=== PATIENT | male | born 1990 | race African-American/Black ===

== ENCOUNTER 2020-01-09 12:35 | Emergency (ER) | payer SELFPAY ==
[2020-01-09] MEDS ORDERED: TETRACAINE HCL 0.5% OPH SOLN 4 ML OS ONE ×2 (12:44→15:00)
--- NOTE | 2020-01-09 12:45 | ER Document Report ---
ED Medical Screen (RME) - General Chief Complaint: Eye Pain Stated Complaint: EYE ISSUES Time Seen by Provider: 01/09/20 12:42 Primary Care Provider: ZAKIYA SALAS [Primary Care Provider] - Follow up as needed - [facility] Notes: 01/09/20 12:44 Patient is a 29-year-old male who presents complaining of left eye pain that began this morning when he was smoking a cigarette. Patient states that the wind blew an action to his eye. Patient states that he has felt burning and irritation since then. He does not wear contact lenses. He did use the eye wash station at his work and has been rubbing at his eye. No other recent illness or fever. I have treated and performed a rapid initial assessment of this patient. A comprehensive ED assessment and evaluation of the patient, analysis of test results and completion of medical decision making process will be conducted by additional ED providers. PHYSICAL EXAMINATION: GENERAL: Well-appearing, well-nourished and in no acute distress. A&Ox4. Answers questions appropriately. Left eye: There is injection noted and a haziness noted to the cornea on basic evaluation in triage. - Related Data Allergies/Adverse Reactions: peanut Allergy (Verified 01/09/20 12:38) Past Medical History - Social History Frequency of alcohol use: None Drug Abuse: None Physical Exam - Vital signs Vitals: Temp Pulse Resp BP Pulse Ox 98.1 F 85 16 128/71 H 97 01/09/20 12:38 01/09/20 12:38 01/09/20 12:38 01/09/20 12:38 01/09/20 12:38 Course - Vital Signs Vital signs: Temp Pulse Resp BP Pulse Ox 98.1 F 85 16 128/71 H 97 01/09/20 12:38 01/09/20 12:38 01/09/20 12:38 01/09/20 12:38 01/09/20 12:38 Doctor's Discharge - Discharge Referrals: ZAKIYA SALAS [Primary Care Provider] - Follow up as needed
[2020-01-09] MEDS ORDERED: DIPH/PERTUSS(ACELL)/TETANUS VAC/PF 0.5 ML SYR (>=10YO) IM ONE (16:49)
--- NOTE | 2020-01-09 16:54 | ER Document Report ---
ED General - General Chief Complaint: Eye Pain Stated Complaint: EYE ISSUES Time Seen by Provider: 01/09/20 12:42 Primary Care Provider: ZAKIYA SALAS [NO LOCAL MD] - Follow up as needed Notes: Patient is a 29-year-old -[place] male with no significant past medical history who presents to the emergency department with a chief complaint of injury to the left eye that occurred around 9 AM this morning. Patient reports he was outside smoking a cigarette when some of the gera from the distal tip of the cigarette flew into his left eye. He states he went and flushed his eye for about an hour at an eyewash station. He states the eye did not improve and it still feels as though there is something in the eye every time he closes his lid, accompanied by photophobia so he decided to come for evaluation. Denies any history of injury or trauma to the side. Denies any visual disturbances. Denies any headache or facial pain. - Related Data Allergies/Adverse Reactions: peanut Allergy (Verified 01/09/20 12:38) Past Medical History - Social History Smoking Status: Current Every Day Smoker Frequency of alcohol use: None Drug Abuse: None Family History: None Patient has suicidal ideation: No Patient has homicidal ideation: No Review of Systems - Review of Systems EENT: Eye pain, Tearing -: Yes All other systems reviewed and negative Physical Exam - Vital signs Vitals: Temp Pulse Resp BP Pulse Ox 98.1 F 85 16 128/71 H 97 01/09/20 12:38 01/09/20 12:38 01/09/20 12:38 01/09/20 12:38 01/09/20 12:38 - General General appearance: Appears well, Alert In distress: None - HEENT Head: Normocephalic, Atraumatic Eyes: Normal Conjunctiva: Normal Cornea: Corneal abrasion - At the 11 o'clock position of the cornea, Flourescein stain uptake Eyelashes: Normal Pupils: PERRL Visual acuity- Right eye: 20/15 -1 Visual acuity- Left eye: 20/15 -1 Visual acuity- Both eyes: 20/15 -1 Corrective lenses worn: No Ears: Normal External canal: Normal Tympanic membrane: Normal Sinus: Normal Nasal: Normal Mouth/Lips: Normal Mucous membranes: Normal Pharynx: Normal Neck: Normal - Respiratory Respiratory status: No respiratory distress Chest status: Nontender Breath sounds: Normal Chest palpation: Normal - Cardiovascular Rhythm: Regular Heart sounds: Normal auscultation - Neurological Neuro grossly intact: Yes Cognition: Normal Orientation: AAOx4 Megan Coma Scale Eye Opening: Spontaneous [place] Coma Scale Verbal: Oriented [place] Coma Scale Motor: Obeys Commands Megan Coma Scale Total: 15 Speech: Normal Sensory: Normal - Psychological Associated symptoms: Normal affect, Normal mood - Skin Skin Temperature: Warm Skin Moisture: Dry Skin Color: Normal Course - Re-evaluation Re-evalutation: 01/09/20 17:15 Visual acuity was recorded as 2014 all. Patient's history and physical consistent with a corneal abrasion. Will be placed on Ocuflox. Counseled him at length regarding the importance of outpatient follow-up in 1 to 2 days and advised that he return here or any ER immediately with any new, persistent or worsening symptoms. He verbalized understood and agreed. Tetanus updated today. - Vital Signs Vital signs: Temp Pulse Resp BP Pulse Ox 98.1 F 85 16 128/71 H 97 01/09/20 12:38 01/09/20 12:38 01/09/20 12:38 01/09/20 12:38 01/09/20 12:38 Discharge - Discharge Clinical Impression: Corneal abrasion Qualifiers: Encounter type: initial encounter Laterality: left Qualified Code(s): S05.02XA - Injury of conjunctiva and corneal abrasion without foreign body, left eye, initial encounter Condition: Stable Disposition: HOME, SELF-CARE Instructions: Corneal Abrasion ([facility]) Additional Instructions: Follow-up with your regular doctor in 2 to 3 days for reevaluation. Return here or any ER immediately with any new, persistent or worsening symptoms. Prescriptions: Ofloxacin 1 drop OP QID #5 ml Referrals: ZAKIYA SALAS [NO LOCAL MD] - Follow up as needed RADHA CHO DO [ACTIVE STAFF] - Follow up as needed
[2020-01-09 17:24] VITALS: BP 122/78
== END 2020-01-09 17:24 | disposition home or self-care (01) ==
LOC: ER 12:35
DX: S05.02XA Injury of conjunctiva and corneal abrasion without foreign body, left eye, initial encounter (principal); W20.8XXA Other cause of strike by thrown, projected or falling object, initial encounter; Y93.89 Activity, other specified; F17.210 Nicotine dependence, cigarettes, uncomplicated; Z23 Encounter for immunization; Z91.010 Allergy to peanuts
CPT/HCPCS: 90715; J3490

== ENCOUNTER 2020-02-04 12:22 | Emergency (ER) | payer SELFPAY ==
--- NOTE | 2020-02-04 13:32 | ER Document Report ---
ED Medical Screen (RME) - General Chief Complaint: Vomiting Stated Complaint: VOMITING Time Seen by Provider: 02/04/20 13:29 Mode of Arrival: Ambulatory Information source: Patient Notes: 29-year-old male presented to ED for complaint of nausea did not vomit because he ate a popsicle since 5 AM this morning he also has left lower quadrant abdominal pain on a level 3 of 5 with dull pain. He states he smokes 1/2 pack a day drinks monthly smokes pot daily. He does have a history of sarcoidosis. He is alert oriented respirations regular nonlabored speaking in full sentences does not look in any distress at this time. I have greeted and performed a rapid initial assessment of this patient. A comprehensive ED assessment and evaluation of the patient, analysis of test results and completion of medical decision making process will be conducted by an additional ED providers. - Related Data Allergies/Adverse Reactions: peanut Allergy (Verified 02/04/20 13:22) Physical Exam - Vital signs Vitals: Temp Pulse Resp BP Pulse Ox 98.7 F 70 16 112/75 99 02/04/20 12:02/04/20 12:02/04/20 12:02/04/20 12:02/04/20 12:26 Course - Vital Signs Vital signs: Temp Pulse Resp BP Pulse Ox 98.7 F 70 16 112/75 99 02/04/20 12:26 02/04/20 12:26 02/04/20 12:26 02/04/20 12:26 02/04/20 12:26
[2020-02-04 14:05] LABS: ABSOLUTE EOSINOPHILS # (AUTO) 0.1 10^3/uL (0.0-0.6); ABSOLUTE LYMPHOCYTES (AUTO) 1.1 10^3/uL (0.5-4.7); ABSOLUTE MONOCYTES (AUTO) 0.4 10^3/uL (0.1-1.4); EOSINOPHILS % (AUTO) 2.7 % (0-6); HEMOGLOBIN 16.2 g/dL (13.5-17.0); LYMPHOCYTES % (AUTO) 23.6 % (13-45); MEAN CORPUSCULAR HGB CONC 34.4 g/dL (32.0-36.0); MEAN CORPUSCULAR VOLUME 87 fl (80-97); PLATELET COUNT 223 10^3/uL (150-450); RED CELL DISTRIBUTION WIDTH 14.7 % (11.5-14.0); SEGMENTED NEUTROPHILS % (AUTO) 64.7 % (42-78); TOTAL CELLS COUNTED % (AUTO) 100 %; WHITE BLOOD COUNT 4.7 10^3/uL (4.0-10.5)
[2020-02-04 14:30] LABS: ALBUMIN 4.8 g/dL (3.5-5.0); ALKALINE PHOSPHATASE 60 U/L (38-126); ANION GAP 9 (5-19); ASPARTATE AMINO TRANSFERASE 20 U/L (17-59); BILIRUBIN,TOTAL 0.5 mg/dL (0.2-1.3); BLOOD UREA NITROGEN 16 mg/dL (7-20); CALCIUM 10.2 mg/dL (8.4-10.2); CARBON DIOXIDE 27 mmol/L (22-30); CHLORIDE 104 mmol/L (98-107); GLUCOSE 88 mg/dL (75-110); POTASSIUM 4.6 mmol/L (3.6-5.0); TOTAL PROTEIN 7.9 g/dL (6.3-8.2)
[2020-02-04] MEDS ORDERED: ONDANSETRON 4 MG TAB.RAPDIS PO ONE (15:17)
[2020-02-04] MEDS ORDERED: ONDANSETRON ODT 4 MG TAB (6 TAB/ER DISP) PO PRN (15:17)
--- NOTE | 2020-02-04 15:22 | ER Document Report ---
ED General - General Chief Complaint: Abdominal Pain Stated Complaint: VOMITING Time Seen by Provider: 02/04/20 13:29 Mode of Arrival: Ambulatory TRAVEL OUTSIDE OF THE [place] IN LAST 30 DAYS: No - HPI Notes: Patient is a 29-year-old male with a history of sarcoidosis who presents e mergency department for evaluation of nausea and diarrhea. Symptoms all started today. He has a squeezing pain in his left upper quadrant that started today as well. He is had no emesis but has had multiple episodes of watery diarrhea. He does have a history of C. difficile, but states this feels different. He is not been on antibiotics for some time. No fevers to his knowledge. He is still urinating. He was able to keep down fluids. - Related Data Allergies/Adverse Reactions: peanut Allergy (Verified 02/04/20 13:22) Home Medications: None Past Medical History - General Information source: Patient - Social History Smoking Status: Current Every Day Smoker Drug Abuse: Marijuana Family History: None Patient has suicidal ideation: No Patient has homicidal ideation: No - Medical History Medical History: Other - Sarcoidosis Review of Systems - Review of Systems Constitutional: Malaise Gastrointestinal: See HPI -: Yes All other systems reviewed and negative Physical Exam - Vital signs Vitals: Temp Pulse Resp BP Pulse Ox 98.7 F 70 16 112/75 99 02/04/20 12:26 02/04/20 12:26 02/04/20 12:26 02/04/20 12:26 02/04/20 12:26 - Notes Notes: Vital signs reviewed, please refer to chart. Head is normocephalic, atraumatic. Pupils equal round, reactive to light. Neck is supple without meningismus. Heart is regular rate and rhythm. Lungs are clear to auscultation bilaterally. Abdomen is soft, nontender, normoactive bowel sounds throughout. Extremities without cyanosis, clubbing. Posterior calves are nontender. Peripheral pulses are equal. Skin is warm and dry. Patient is awake, alert, neurological exam is nonfocal. Course - Re-evaluation Re-evalutation: 02/04/20 15:19 Patient presents to the emergency department for evaluation. Laboratory investigations were ordered as through triage. There was no significant abnormality, although urinalysis is still pending at this time. It has been submitted, but the patient does not have any urinary symptoms. We talked at length. Certainly he has risk factors for C. difficile with his history of this as well as sarcoidosis, but he states this feels dissimilar, and he is unable to give me a stool sample at this time. Given his lack of abnormal vital signs, abnormal blood work, I think it is reasonable to treat conservatively. He is told to not take any antidiarrheals in the meantime. If his diarrhea persists for more than the next 24 hours, he should have his stool tested for C. diff icile. He voiced understanding. Otherwise he is given a dose of Zofran here, sent with the Zofran to go pack. He is to follow-up with primary care this week, return to the ED with worsening or new concerning symptoms of any sort. - Vital Signs Vital signs: Temp Pulse Resp BP Pulse Ox 98.7 F 70 16 112/75 99 02/04/20 12:26 02/04/20 12:26 02/04/20 12:26 02/04/20 12:26 02/04/20 12:26 - Laboratory Result Diagrams: 02/04/20 13:37 02/04/20 13:37 Laboratory results interpreted by me: 02/04/20 13:37 RDW 14.7 H Discharge - Discharge Clinical Impression: Nausea, Left upper quadrant abdominal pain of unknown etiology Diarrhea Qualifiers: Diarrhea type: unspecified type Qualified Code(s): R19.7 - Diarrhea, unspecified Condition: Stable Disposition: HOME, SELF-CARE Instructions: Abdominal Pain ([facility]), Antinausea Medication ([facility]), Diarrhea, Nonspecific ([facility]) Additional Instructions: Rest. Stay hydrated with small, frequent sips of fluids. Zofran as needed for severe nausea. If your diarrhea persists for longer than 24 hours, if you develop fever, increased pain, or any other new or concerning symptoms, please return immediately to the emergency department for evaluation. You should follow-up with primary care this week as well.
[2020-02-04 15:37] VITALS: BP 122/81
[2020-02-04 16:07] LABS: APPEARANCE,URINE CLEAR; BILIRUBIN,URINE NEGATIVE (NEGATIVE); COLOR,URINE YELLOW; GLUCOSE, URINE NEGATIVE (NEGATIVE); KETONES,URINE NEGATIVE (NEGATIVE); PROTEIN,URINE NEGATIVE (NEGATIVE); URINE SPECIFIC GRAVITY 1.026; UROBILINOGEN,URINE NEGATIVE mg/dL (<2.0)
== END 2020-02-04 15:37 | disposition home or self-care (01) ==
LOC: ER 12:22
DX: R11.0 Nausea (principal); R19.7 Diarrhea, unspecified; R10.12 Left upper quadrant pain; F17.200 Nicotine dependence, unspecified, uncomplicated; F12.10 Cannabis abuse, uncomplicated; Z91.010 Allergy to peanuts
CPT/HCPCS: 99283; 36415; 83690; 85025; 80053; 81001; S0119